=== PATIENT | female | born 1940 | race Caucasian/White ===

== ENCOUNTER 2016-11-19 21:47 | Emergency (ER) | payer MEDICARE ==
[~2016-11-19 21:47] MED LIST: LEXAPRO10 MG PO
[2016-12-15] MEDS ORDERED: LORCET HD 10-31 EACH PO (16:51)
[2016-12-15] MEDS ORDERED: LIPITOR TAB 1010 MG PO (16:52)
[2016-12-15] MEDS ORDERED: KLONOPIN TAB 00.5 MG PO (16:52)
[2016-12-15] MEDS ORDERED: ZEBETA 5 MG TAB5 MG PO (16:52)
[2016-12-15] MEDS ORDERED: ADVAIR 250-501 EACH INH (16:53)
[2016-12-15] MEDS ORDERED: SPIRIVA18 MCG INH (16:54)
== END 2016-11-20 00:53 | disposition home or self-care (01) ==
LOC: ER1 21:47
DX: Z53.21 Procedure and treatment not carried out due to patient leaving prior to being seen by health care provider (principal)

== ENCOUNTER → 2016-11-20 | Outpatient (CLI) | payer MEDICARE ==
[~2016-11-20] MED LIST changes: +ADVAIR 250-501 EACH INH; +KLONOPIN TAB 00.5 MG PO; +LIPITOR TAB 1010 MG PO; +LORCET HD 10-31 EACH PO; +SPIRIVA18 MCG INH; +ZEBETA 5 MG TAB5 MG PO
== END ==
LOC: KOH-I 11:27
DX: J44.1 Chronic obstructive pulmonary disease with (acute) exacerbation (principal)
CPT/HCPCS: 71020

== ENCOUNTER 2020-07-19 20:09 | Emergency (ER) | payer MEDICARE, OTHER ==
[~2020-07-19 20:09] MED LIST changes: -ADVAIR 250-501 EACH INH; +BISOPROLOL FUMA10 MG PO; +DOXYCYCLINE HY100 M2 PO; +ELIQUIS 2.5 MG2.5 MG PO; +FERROUS SULFAT325 M2 PO; +IPRAT-ALBUT 0.5-3 ML INH; -LEXAPRO10 MG PO; +LEXAPRO20 MG PO; +MEDROL4 MG PO; +PERIOGARD473 ML PO; +PRILOSEC OTC20 MG PO; +PROAIR HFA8.5 GM INH; +ROBITUSSIN DM473 ML PO; +VISTARIL25 MG PO
[2020-07-19 21:44] LABS: RED BLOOD COUNT 3.49 M/UL (4.00-5.10); WHITE BLOOD COUNT 5.8 K/UL (4.5-11.0)
== END 2020-07-20 06:30 | disposition home or self-care (01) ==
LOC: ER1 20:09
PROVIDERS: Emergency Medicine
DX: E86.0 Dehydration (principal); R41.0 Disorientation, unspecified
CPT/HCPCS: 36600; 71045; 80053; 81001; 82803; 84484; 85025; 87040; 93005; 99285; Q9967

== ENCOUNTER 2020-08-04 17:53 | Inpatient (IN) | payer MEDICARE, OTHER ==
[~2020-08-04] VITALS: Ht 165.1 cm; Wt 56.8 kg
[2020-08-04 18:20] LABS: HEMOGLOBIN 10.6 gm/dl (12.3-15.3); RED BLOOD COUNT 3.86 M/UL (4.00-5.10); WHITE BLOOD COUNT 4.1 K/UL (4.5-11.0)
[2020-08-04 18:58] LABS: BUN/CREATININE RATIO 15 (0-10)
[2020-08-05 02:52] LABS: HEMOGLOBIN 11.7 gm/dl (12.3-15.3); RED BLOOD COUNT 4.24 M/UL (4.00-5.10); WHITE BLOOD COUNT 3.1 K/UL (4.5-11.0)
[2020-08-05 03:11] LABS: BUN/CREATININE RATIO 18 (0-10)
[2020-08-06 03:14] LABS: WHITE BLOOD COUNT 2.5 K/UL (4.5-11.0)
[2020-08-06 03:24] LABS: HEMOGLOBIN 9.7 gm/dl (12.3-15.3); RED BLOOD COUNT 3.53 M/UL (4.00-5.10)
[2020-08-06 03:42] LABS: BUN/CREATININE RATIO 38 (0-10)
[2020-08-08 06:22] LABS: HEMOGLOBIN 9.9 gm/dl (12.3-15.3); RED BLOOD COUNT 3.63 M/UL (4.00-5.10)
[2020-08-08 06:24] LABS: WHITE BLOOD COUNT 3.3 K/UL (4.5-11.0)
[2020-08-08] MEDS ORDERED: PREDNISONE10 MG PO (08:33)
[2020-08-08] MEDS ORDERED: ZEBETA 5 MG TAB5 MG PO (08:33)
[2020-08-08] MEDS ORDERED: OMNICEF 300 MG300 MG PO (08:33)
== END 2020-08-08 13:33 | disposition home or self-care (01) | DRG 193 ==
LOC: ER1 17:53 → CDU 21:42 → M/S 21:42
PROVIDERS: Family Medicine; Internal Medicine; Physician Assistant; ADMIT Internal Medicine
DX: J18.9 Pneumonia, unspecified organism (principal); J96.21 Acute and chronic respiratory failure with hypoxia; J96.22 Acute and chronic respiratory failure with hypercapnia; G93.41 Metabolic encephalopathy; J44.0 Chronic obstructive pulmonary disease with (acute) lower respiratory infection; N30.00 Acute cystitis without hematuria; D61.818 Other pancytopenia; J44.1 Chronic obstructive pulmonary disease with (acute) exacerbation; B96.20 Unspecified Escherichia coli [E. coli] as the cause of diseases classified elsewhere; I27.20 Pulmonary hypertension, unspecified; D70.9 Neutropenia, unspecified; Z66 Do not resuscitate; L89.152 Pressure ulcer of sacral region, stage 2; F41.1 Generalized anxiety disorder; D53.9 Nutritional anemia, unspecified; I44.7 Left bundle-branch block, unspecified; Z20.822 Contact with and (suspected) exposure to COVID-19; I10 Essential (primary) hypertension; G89.4 Chronic pain syndrome; F41.9 Anxiety disorder, unspecified; E78.5 Hyperlipidemia, unspecified; Z99.81 Dependence on supplemental oxygen; Z91.81 History of falling; Z90.710 Acquired absence of both cervix and uterus; Z90.49 Acquired absence of other specified parts of digestive tract; Z88.0 Allergy status to penicillin; Z88.2 Allergy status to sulfonamides; Z87.891 Personal history of nicotine dependence; Z79.899 Other long term (current) drug therapy; Z28.21 Immunization not carried out because of patient refusal
CPT/HCPCS: 36415; 36600; 70450; 71045; 80048; 80053; 81001; 82550; 82553; 82803; 83874; 84484; 85025; 87040; 87077; 87086; 87186; 93005; 94640; 94660; 94664; 94760; 96365; 96372; 96375; 99285; J0456; J0696; J1650; J2920; J2930; J7030; U0002

== ENCOUNTER 2020-08-20 12:24 | Emergency (ER) | payer MEDICARE, OTHER ==
[~2020-08-20 12:24] MED LIST changes: +OMNICEF 300 MG300 MG PO; +PREDNISONE10 MG PO
== END 2020-08-20 15:13 | disposition home or self-care (01) ==
LOC: ER1 12:24
DX: S32.029A Unspecified fracture of second lumbar vertebra, initial encounter for closed fracture (principal); S22.089A Unspecified fracture of T11-T12 vertebra, initial encounter for closed fracture; I10 Essential (primary) hypertension; E78.5 Hyperlipidemia, unspecified; J44.9 Chronic obstructive pulmonary disease, unspecified; Z87.891 Personal history of nicotine dependence; Z90.710 Acquired absence of both cervix and uterus; W18.30XA Fall on same level, unspecified, initial encounter
CPT/HCPCS: 70450; 72125; 72128; 72131; 73522; 99284; J0696; J2405

== ENCOUNTER 2020-09-21 09:32 | Inpatient (IN) | payer MEDICARE ==
[~2020-09-21] VITALS: Ht 165.1 cm; Wt 54.0 kg
[2020-09-21 10:49] LABS: BUN/CREATININE RATIO 31 (0-10)
[2020-09-21 11:40] LABS: HEMOGLOBIN 10.5 gm/dl (12.3-15.3); RED BLOOD COUNT 3.8 M/UL (4.00-5.10); WHITE BLOOD COUNT 3.4 K/UL (4.5-11.0)
[2020-09-21] MEDS ORDERED: HYDROCODON-ACE1 EAC6 PO (12:40)
[2020-09-21] MEDS ORDERED: ALBUTEROL2.5 MG/3 M INH (12:45)
[2020-09-21] MEDS ORDERED: SPIRIVA RESPIMAT4 GM INH (12:46)
[2020-09-21] MEDS ORDERED: OMEPRAZOLE40 MG PO (12:48)
[2020-09-21] MEDS ORDERED: [UNRECOGNIZED DRUG - OTHER] PO (14:32)
[2020-09-21] MEDS ORDERED: BUSPIRONE HCL15 MG PO (15:52)
[2020-09-21] MEDS ORDERED: KLONOPIN TAB 00.5 MG PO (16:02)
[2020-09-21] MEDS ORDERED: ADVAIR 250-501 EACH INH (16:53)
[2020-09-22 04:17] LABS: HEMOGLOBIN 9.2 gm/dl (12.3-15.3)
[2020-09-22 04:19] LABS: RED BLOOD COUNT 3.36 M/UL (4.00-5.10); WHITE BLOOD COUNT 1.8 K/UL (4.5-11.0)
[2020-09-22 04:37] LABS: BUN/CREATININE RATIO 38 (0-10)
[2020-09-22 12:26] LABS: BORDETELLA PARAPERTUSSIS Not Detected (Not Detectd); BORDETELLA PERTUSSIS Not Detected (Not Detectd); CHLAMYDIA PNEUMONIAE Not Detected (Not Detectd); CORONAVIRUS HKU1 Not Detected (Not Detectd); CORONAVIRUS NL63 Not Detected (Not Detectd); CORONAVIRUS OC43 Not Detected (Not Detectd); CORONOAVIRUS 229E Not Detected (Not Detectd); HUMAN METAPNEUMOVIRUS Not Detected (Not Detectd); HUMAN RHINOVIRUS/ENTEROVIRUS Not Detected (Not Detectd); INFLUENZA A Not Detected (Not Detectd); INFLUENZA B Not Detected (Not Detectd); MYCOPLASMA PNEUMONIAE Not Detected (Not Detectd); PARAINFLUENZA VIRUS 1 Not Detected (Not Detectd); PARAINFLUENZA VIRUS 2 Not Detected (Not Detectd); PARAINFLUENZA VIRUS 3 Not Detected (Not Detectd); PARAINFLUENZA VIRUS 4 Not Detected (Not Detectd); RESPIRATORY SYNCYTIAL VIRUS Not Detected (Not Detectd)
[2020-09-22 13:44] LABS: SARS-CoV-2 NOT DETECTED (Not Detectd)
[2020-09-23 02:25] LABS: HEMOGLOBIN 8.8 gm/dl (12.3-15.3); RED BLOOD COUNT 3.17 M/UL (4.00-5.10)
[2020-09-23 02:30] LABS: WHITE BLOOD COUNT 3.2 K/UL (4.5-11.0)
[2020-09-23 02:44] LABS: BUN/CREATININE RATIO 42 (0-10)
--- NOTE | 2020-09-24 01:49 | NUR ---
1939 PT ARRIVED TO FLOOR BY WAY OF BED A TRANSFER FROM PCU. SEE ASSESSMENT.
[2020-09-24 03:16] LABS: BUN/CREATININE RATIO 45 (0-10)
--- NOTE | 2020-09-24 04:30 | NUR ---
09/22/20 2143 PT PLACED AT [facility]. SEE RESP NOTED FOR SETTINGS
--- NOTE | 2020-09-24 04:30 | NUR ---
09/23/20 0430 PT STILL HAS BIPAP ON HAS WORE IT ALL NIGHT.
[2020-09-24] MEDS ORDERED: MEDROL DOSEPAK 24 MG PO (10:53)
[2020-09-24] MEDS ORDERED: OMNICEF 300 MG300 MG PO (10:56)
[2020-09-25 14:11] LABS: ORGANISM ID Not indicated. (.); SPECIMEN SOURCE Urine (.); STREPTOCOCCUS PNEUMONIAE AG Negative (Negative)
== END 2020-09-24 16:18 | disposition home or self-care (01) | DRG 189 ==
LOC: ER1 09:32 → CDU 11:16 → CCU 15:16 → PROG CARE 09-22 17:01 → M/S 09-23 19:39
PROVIDERS: Emergency Medicine; Physician Assistant Medical; ADMIT Internal Medicine
DX: J96.21 Acute and chronic respiratory failure with hypoxia (principal); G93.41 Metabolic encephalopathy; J18.9 Pneumonia, unspecified organism; M48.56XA Collapsed vertebra, not elsewhere classified, lumbar region, initial encounter for fracture; J44.1 Chronic obstructive pulmonary disease with (acute) exacerbation; J44.0 Chronic obstructive pulmonary disease with (acute) lower respiratory infection; D61.818 Other pancytopenia; L89.151 Pressure ulcer of sacral region, stage 1; Z20.822 Contact with and (suspected) exposure to COVID-19; D64.9 Anemia, unspecified; J96.22 Acute and chronic respiratory failure with hypercapnia; M48.061 Spinal stenosis, lumbar region without neurogenic claudication; W19.XXXA Unspecified fall, initial encounter; F41.9 Anxiety disorder, unspecified; F17.200 Nicotine dependence, unspecified, uncomplicated; I27.20 Pulmonary hypertension, unspecified; E78.5 Hyperlipidemia, unspecified; I10 Essential (primary) hypertension; I44.7 Left bundle-branch block, unspecified; Z88.0 Allergy status to penicillin; Z88.2 Allergy status to sulfonamides; Z90.710 Acquired absence of both cervix and uterus; Z90.49 Acquired absence of other specified parts of digestive tract; Z87.01 Personal history of pneumonia (recurrent)
CPT/HCPCS: 0240U; 36415; 36600; 71045; 72100; 80048; 80053; 81001; 82550; 82553; 82803; 83036; 83735; 83874; 83880; 84484; 85025; 85027; 86738; 87040; 87086; 87278; 87633; 87899; 93005; 94003; 94640; 94660; 94664; 94760; 96365; 96375; 97110; 97110-GP-CQ; 97162; 99285; J0696; J1650; J2920; J2930; J7040